=== PATIENT | female | born 1960 | race Caucasian/White ===

== ENCOUNTER 2021-04-01 19:22 | Emergency (ER) | payer OTHER ==
[~2021-04-01] VITALS: Ht 157.5 cm; Wt 77.1 kg
[2021-04-01 19:26] VITALS: BP 137/82
== END 2021-04-01 20:46 | disposition home or self-care (01) ==
LOC: ER 19:22
DX: G89.29 Other chronic pain (principal); M54.50 Low back pain, unspecified; M79.7 Fibromyalgia; Z98.890 Other specified postprocedural states; Z90.49 Acquired absence of other specified parts of digestive tract